=== PATIENT | female | born 1960 | race Caucasian/White ===

== ENCOUNTER → 2020-07-22 | Outpatient (CLI) | payer OTHER ==
[~2020-07-22] VITALS: Ht 149.9 cm; Wt 77.1 kg
[~2020-07-22] MED LIST: ALBUTEROL INHAL17 GM IH; COZAAR100 MG PO; DARVOCET-N 1001 EACH PO; DULOXETINE HCL60 MG PO; FAMOTIDINE 40 M40 M1 PO; FENOFIBRATE160 MG PO; HYDROCHLOROTHIA25 M2 PO; INCRUSE ELLI62.5 MCG INH; LEVO-T50 MCG PO; LYRICA 50 MG50 M1 PO; PROLIA60 MG/1 ML SUBQ; REQUIP 1 MG TABL1 M1 PO; TYLENOL325 M1 PO; ULTRAM 50MG TAB50 MG PO; VICODIN; ZOLOFT100 MG PO
[2020-07-22 09:28] VITALS: BP 128/69
--- NOTE | 2020-07-22 10:08 | NUR ---
Pain Clinic Assessment: 1. History of Osteoarthritis: History of Rheumatoid Arthritis: 2. Height: 4 ft. 11 in. 149.9 cm. Weight: 170.0 lb. oz. 77.112 kg. Patient's BMI: 34.3 3. Vital Signs: BP: 128/69 Pulse: 93 Resp: 16 Temp: 02 Sat: 98 ECG Mon: 4. Pain Intensity: 8 5. Fall Risk: Dizziness: N Needs help standing or walking: N Fallen in the last 3 months: N Fall risk comments: 6. Patient on Blood Thinner: None 7. History of Hypertension: Y 8. Opioid Therapy greater than 6 weeks: N Opiate Contract Signed: 9. Risk Assessment Tool Provided: 10. Functional Assessment Tool: 11. Recreational Drug Use: Past greater than 3 mos Drug Type: MARIJUANIA Tobacco Use: Former Smoker Tobacco Type: Cigarettes Amount or Packs/day: How Many Years: Alcohol Use: No Frequency: Quant:
--- NOTE | 2020-07-23 11:19 | HPC ---
[facility] [address] [address] PAIN MANAGEMENT CONSULTATION Name: KESHA CARDENAS [id number] Admission: 07/22/20 Attend Phys: Hood Montenegro DO Discharge: Date of : 56 Report #: [id number] THIS REPORT FOR: cc: CJ PAIZ MD, OSSAMA MD Johnson, James E. DO ~ DATE OF SERVICE: 07/22/2020 CHIEF COMPLAINT: Left shoulder pain and bilateral hand pain. HISTORY OF PRESENT ILLNESS: As you know, the patient is a 60-year-old female who reports acute onset of left shoulder pain that occurred November 2019. She denies specific injury or trauma. She states the pain is located within the shoulder with radiation to the proximal humerus on the left. There is no sensation of neck pain or radiation towards the neck. She also complains of chronic bilateral hand pain and numbness and tingling. The patient has undergone 2 steroid injections IM in the left upper extremity, which provided minimal benefit. She has also had oral steroids again which provided minimal benefit. She underwent physical therapy for cervical radiculopathy, which was unhelpful. She continues to experience pain in the left shoulder with any type of movement. She has been referred to our service by her primary care physician for evaluation for left arm and bilateral hand pain. The patient reports today pain is constant with intermittent exacerbations with moving her left shoulder. She states her pain is aching, pulling and sharp when describing pain, places current pain score at 8/10. Daily average at 10/10. Worst pain has been is 10/10. The patient states that pain is exacerbated with using her right arm, pressure on the shoulder, reaching and lifting. Nothing tends to improve pain. She has been referred to our service to discuss treatment options for left shoulder pain and bilateral hand pain. PAST MEDICAL HISTORY: 1. Hyperlipidemia. 2. Chronic low back pain. 3. Anxiety. 4. Depression. 5. Lumbar radiculopathy. 6. Obesity. 7. History of Tarlov cyst, status post surgery. 8. Restless leg syndrome. 9. Hypothyroidism. 10. Hypertension. 11. Osteoporosis. PAST SURGICAL HISTORY: 1. Hysterectomy. [facility] [address] [place] [address] PAIN MANAGEMENT CONSULTATION Name: KESHA CARDENAS Room #: REG [facility].#: [id number] Admission: 07/22/20 Attend Phys: Hood Montenegro DO Discharge: Date of : 56 Report #: [id number] 2. Back surgery. 3. Cholecystectomy. 4. 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 SOCIAL HISTORY: The patient denies tobacco, alcohol, IV or illicit drug use. She is on disability, has been on disability for 10 years. She is not in litigation in regards to pain. She is unaccompanied at today's visit. REVIEW OF SYSTEMS: Positive for fatigue and weakness, frequent and recurrent headaches, wearing corrective eyewear, shortness of breath with walking or lying flat, nocturia, incontinence and dribbling to urine, numbness and tingling sensations, head injury, memory loss, confusion, depression, insomnia, thyroid disease, heat and cold intolerances, left shoulder pain and bilateral hand pain. All other review of systems negative per 12-point review of systems other than those listed in history of present illness. Pain impact score 53/70 indicating severe interference of daily activities secondary to pain. ALLERGIES: No known drug allergies. CURRENT MEDICATIONS: Acetaminophen 325 mg p.r.n., Prolia 60 mg per mL twice a year, Incruse Ellipta 62.5 mcg inhaled once a day, duloxetine 60 mg per day, ropinirole 2 mg per day, levothyroxine 50 mcg per day, famotidine 40 mg per day, losartan 100 mg once a day, hydrochlorothiazide 25 mg once a day, fenofibrate 160 mg once a day, sertraline 100 mg per day. IMAGING: MRI cervical spine obtained 06/23/2020 shows mild posterior C4-C5, C5-C6 disk bulge, no central canal nor neural foraminal stenosis. Normal diameter of the central canal throughout the cervical spine and normal foramen. This is essentially a normal MRI. PQRS: The patient reports no history of rheumatoid arthritis. She is placing a current pain intensity at 8/10. She is not a fall risk, has not had a fall in last 3 months. She is not on blood thinners, but is treated for hypertension. She is not on chronic opioids, has a [id number] opioid addiction potential based on assessment tool. Pain impact 53/70, severe interference of daily activities secondary to pain. PHYSICAL EXAMINATION: VITAL SIGNS: Blood pressure 120/69, pulse 93, respiratory rate 16 and unlabored. The patient is 98% on room air. Height 4 feet 11 inches tall, weight 170 pounds, BMI calculated 34.3. GENERAL: Well-developed, well-nourished, well-hydrated, exogenously obese 60-year-old female appearing her stated age. She is in moderate distress secondary to pain, placing current pain score at 8/10 involving the left [address] [address] PAIN MANAGEMENT CONSULTATION Name: KESHA CARDENAS Room #: REG [facility] Robyn#: [id number] Admission: 07/22/20 Attend Phys: Hood Montenegro DO Discharge: Date of : 56 Report #: [id number] shoulder. HEENT: Normocephalic, atraumatic. Pupils equal, round and reactive. NEUROLOGIC: Speech is fluent. The patient deemed a good historian. She is wearing a mask in compliance with COVID-19 regulations. LUNGS: Appear clear. No wheeze, rhonchi or rales. CARDIOVASCULAR: Regular. No appreciable gallop, no rub. ABDOMEN: Soft, obese, normal active bowel sounds. EXTREMITIES: Show no clubbing, no cyanosis, no edema. MUSCULOSKELETAL: Palpatory tenderness is noted over the left shoulder, both anterior and posterior. There is no tenderness over the biceps tendon insertions. Active and passive range of motion of left shoulder causing intensification of pain. She has positive testing for rotator cuff injury. Unable to perform liftoff test. Apley's test is positive. She is unable to abduct the shoulder between 35 degrees and 110 degrees without severe pain and significant giveaway weakness. The patient is also positive for Tinel's and Phalen's sign bilaterally. Cervical provocation testing is met with no increase in pain. There is no crepitus with movement. There is no restriction of motion. Spurling's test is negative bilaterally. Upper extremities muscle bulk and tone is equal and symmetrical 5/5. She is intact to light touch from C5 through T1 dermatomes. Deep tendon reflexes are symmetrical, but diminished at biceps, brachialis and triceps and that is bilaterally. ASSESSMENT: 1. Left shoulder pain. 2. Likely rotator cuff injury of the left shoulder. 3. Bilateral carpal tunnel syndrome. PLAN: 1. Based on today's physical exam and history the patient has provided, the description the patient uses in regards to pain as well as location of symptoms and those activities that exacerbate her left shoulder symptoms themselves, it would appear that her symptoms are related specifically to the left shoulder. Review of the MRI of the cervical spine shows a normal MRI. There is no concerning central canal nor neural foraminal stenosis. I advised the patient, her symptoms are not related to cervical radiculopathy. Testing also confirms this diagnosis. She is experiencing left shoulder pain, I believe there is intrinsic damage, likely a rotator cuff injury given the fact that she cannot participate in any of the provocating testing of the shoulder without excruciating pain. After our discussion of the findings of the physical exam, we discussed the treatment options for her shoulder pain initially and then discussed the treatment options for her bilateral carpal tunnel causing bilateral hand pain and numbness. The following was discussed with the patient today. We discussed physical therapy, stretching exercises and attention directed, specifically at the left shoulder. Apparently, the patient was undergoing [facility] [address] [place] [address] PAIN MANAGEMENT CONSULTATION Name: KESHA CARDENAS Room #: REG [facility] Gloria#: [id number] Admission: 07/22/20 Attend Phys: Hood Montenegro DO Discharge: Date of : 56 Report #: [id number] physical therapy for a cervical radiculopathy, which is not the source of the patient's symptoms. We discussed addition of medications such as nonsteroidal anti-inflammatories on a consistent basis, which could provide benefit, but would have to be taken on a very consistent daily basis. We discussed having the patient undergo an intra-articular shoulder injection if she notes improvement initially with the injection. This would further confirm the source of the symptoms is her left shoulder. We also then discussed a consultation with Orthopedics for possible surgical evaluation. After reviewing risks and benefits of all proposed treatment options, the patient chose to begin with an intra-articular shoulder injection. 2. The patient was advised risks and benefits of an intra-articular shoulder injection. These risks include but are not necessarily limited to bleeding, bruising, infection, worsening pain, no relief of pain, also risk of temporary or permanent muscle weakness, temporary or permanent nerve damage, possible joint destruction and . The patient states understood and wished to proceed. 3. The patient has bilateral carpal tunnel syndrome based on the physical exam today, she has positive Tinel's and positive Phalen's sign. We would recommend initially conservative treatment for her carpal tunnel with cock-up splints as a treatment course. We had also suggested the primary care team could initiate therapy with neuropathic pain medication such as amitriptyline, nortriptyline, Cymbalta, Lyrica, or gabapentin. We also discussed that surgical decompression with a flexor retinaculum release bilaterally would provide her with further improvement and return of function. After reviewing the risks and benefits of all the proposed treatment options, the patient chose to look into cock-up splints initially. If this is unsuccessful, then move forward with orthopedic evaluation for bilateral carpal tunnel. 4. We made no changes in the patient's medication management at this time. She will continue current therapy as prior prescribed. 5. We plan to see the patient back in followup visit in approximately one month. I am pleased to see that the patient left our clinic today with 100% resolution of her left shoulder pain after the intra-articular shoulder injection further in the presumptive diagnosis of intrinsic shoulder injury on the left side, likely due to rotator cuff pathology. Imaging of the left shoulder did not show a significant amount of osteoarthritis, though 100% resolution of symptoms with an intra-articular shoulder injection would indicate the likelihood of a rotator cuff injury that needs to be evaluated further. We are hopeful the patient will see benefit with the injection and we will see her back in followup visit in 1 month to discuss further. 6. We wish to thank the referring physician, Dr. Wick for the opportunity to see the patient in consultation. We will keep you apprised of response to treatment as we address left shoulder pain and bilateral carpal tunnel. DESCRIPTION OF PROCEDURE: Left intra-articular shoulder injection under fluoroscopic guidance. [facility] [address] [place] [address] PAIN MANAGEMENT CONSULTATION Name: KESHA CARDENAS Pool Room #: REG [facility].#: [id number] Admission: 07/22/20 Attend Phys: Hood Montenegro DO Discharge: Date of : 56 Report #: [id number] After obtaining written consent, the patient was taken back to fluoroscopy suite, placed in a supine position. Image intensifier (C-arm) was brought into position over the left shoulder and AP imaging was obtained. The area overlying the left shoulder was then prepped and draped in aseptic fashion using chlorhexidine. A sterile marker was then used to leighann the site of the injection. A 27-gauge 1-1/4 inch needle was then used to anesthetize skin and subcutaneous tissue with 2 mL of 1% lidocaine. A 27-gauge 1-1/2 inch needle was then advanced into the left shoulder under fluoroscopic guidance. Needle was advanced until reaching the proximal head of the humerus. Needle was then retracted 1 mm and aspiration noted to be negative for heme. After negative aspiration for heme, 0.5 mL of Omnipaque injected demonstrating an excellent left shoulder arthrogram. After negative aspiration for heme, 3 mL of a solution containing 1 mL 40 mg per mL, 40 mg total triamcinolone along with 2 mL bupivacaine 0.5% injected slowly. Needle retracted group home, flushed with 1 mL of 1% lidocaine and removed. Sterile bandage placed over injection site. No new motor deficits present in the upper extremity following procedure. The patient tolerated procedure well, carefully escorted to recovery room in stable condition. No apparent complications. VAS before procedure rated at 8/10, VAS upon discharge 0/10. After meeting our discharge criteria, the patient discharged home. <ELECTRONICALLY SIGNED> By: Hood Montenegro DO 07/23/20 1119 0900 [id number] Hood Montenegro DO /nt
== END | disposition home or self-care (01) ==
LOC: PAIN 07-02 10:17
PROVIDERS: ATTEND Anesthesiology Pain Medicine
DX: M25.512 Pain in left shoulder (principal); G89.29 Other chronic pain; I10 Essential (primary) hypertension; E03.9 Hypothyroidism, unspecified; E78.5 Hyperlipidemia, unspecified; M81.0 Age-related osteoporosis without current pathological fracture; F32.9 Major depressive disorder, single episode, unspecified; F41.9 Anxiety disorder, unspecified; E66.09 Other obesity due to excess calories; Z98.890 Other specified postprocedural states; Z79.899 Other long term (current) drug therapy; Z87.891 Personal history of nicotine dependence; Z68.34 Body mass index [BMI] 34.0-34.9, adult; Z90.49 Acquired absence of other specified parts of digestive tract; Z90.710 Acquired absence of both cervix and uterus

== ENCOUNTER → 2020-08-12 | Outpatient (CLI) | payer OTHER ==
[~2020-08-12] VITALS: Ht 149.9 cm; Wt 78.6 kg
[~2020-08-12] MED LIST changes: +VOLTAREN GEL 1100 G1 TOP
[2020-08-12 12:39] VITALS: BP 127/92
--- NOTE | 2020-08-12 12:52 | NUR ---
Pain Clinic Assessment: 1. History of Osteoarthritis: TAILBONE History of Rheumatoid Arthritis: 2. Height: 4 ft. 11 in. 149.9 cm. Weight: 173.2 lb. oz. 78.563 kg. Patient's BMI: 35.0 3. Vital Signs: BP: 127/92 Pulse: 88 Resp: 14 Temp: 02 Sat: 96 ECG Mon: 4. Pain Intensity: 4 5. Fall Risk: Dizziness: N Needs help standing or walking: N Fallen in the last 3 months: N Fall risk comments: 6. Patient on Blood Thinner: None 7. History of Hypertension: Y 8. Opioid Therapy greater than 6 weeks: N Opiate Contract Signed: 9. Risk Assessment Tool Provided: 10. Functional Assessment Tool: 11. Recreational Drug Use: Past greater than 3 mos Drug Type: Tobacco Use: Former Smoker Tobacco Type: Amount or Packs/day: How Many Years: Alcohol Use: No Frequency: Quant:
--- NOTE | 2020-08-13 14:14 | HPC ---
[facility] [place] [place] [address] PAIN MANAGEMENT CONSULTATION Name: KESHA CARDENAS Room #: REG [facility] Faizan#: [id number] Admission: 08/12/20 Attend Phys: Hood Montenegro DO Discharge: Date of : 56 Report #: [id number] THIS REPORT FOR: cc: CJ PAIZ MD, OSSAMA MD Johnson, James E. DO ~ DATE OF SERVICE: 08/12/2020 CHIEF COMPLAINT: Left shoulder pain. HISTORY OF PRESENT ILLNESS: As you know, the patient is a 60-year-old female with longstanding history of left shoulder pain beginning in November 2019. The patient is unable to utilize her left arm due to ongoing pain. She has pain that begins in the shoulder and radiates to the proximal humerus consistent with left shoulder symptoms. She underwent an intra-articular shoulder injection, which provided 100% improvement in overall pain directly after the injection, indicating that the shoulder is the source of the symptoms. She has no cervical radicular pain, and imaging of the cervical spine is normal. We discussed with the patient at that last visit that if the injection did not provide long-term benefit, we would recommend surgical evaluation. She returns today in followup visit, stating that her symptoms recurred quite quickly, but did receive 100% improvement in symptoms with the local anesthetic consistent with an intrinsic shoulder pathology. She returns stating that her pain is continuous, constant, aching, pulling, sharp, and intense, exacerbated with using her arm and lifting with her arm. She has suffered no injury or trauma to the area that she is aware of. ALLERGIES: No known drug allergies. CURRENT MEDICATIONS: Acetaminophen, Prolia, Incruse Ellipta, duloxetine, ropinirole, levothyroxine, famotidine, losartan, hydrochlorothiazide, fenofibrate, and sertraline. SOCIAL HISTORY: The patient denies tobacco, alcohol, IV or illicit drug use. She is on disability, has been on disability for 10 years. She is not in litigation in regard to pain. She is unaccompanied today. IMAGING: No new imaging available. PQRS: The patient has no reported history of rheumatoid arthritis. She has generalized osteoarthritis, specifically mild in the cervical region. She is placing current pain intensity at 4/10. She is not a fall risk, has not had a fall in last 3 months. She is not on blood thinners, but is treated for hypertension. She is not on chronic opioids, has a low opioid addiction potential based on our assessment tool. Pain impact is 60/70, severe, near complete interference of daily activities secondary to pain. [address] [address] PAIN MANAGEMENT CONSULTATION Name: KESHA CARDENAS Room #: REG [facility] Gloria#: [id number] Admission: 08/12/20 Attend Phys: Hood Montenegro DO Discharge: Date of : 56 Report #: [id number] PHYSICAL EXAMINATION: VITAL SIGNS: Blood pressure 127/92, pulse 88, respiratory rate 14 and unlabored. The patient is 96% on room air. Height 4 feet 11 inches tall, weight 173.2 pounds and BMI calculated 35.0. GENERAL: Well-developed, well-nourished, well-hydrated, exogenously obese 60-year-old female appearing stated age. Pain is rated today 4/10 involving the left shoulder. HEENT: Normocephalic, atraumatic. Pupils are round and responsive. NEUROLOGIC: Speech is fluent. The patient is wearing a mask in compliance with COVID-19 regulations. EXTREMITIES: Show no clubbing, no cyanosis. No appreciable edema. MUSCULOSKELETAL: Once again, there is a palpatory tenderness noted over the left shoulder, both anterior and posterior. Deep palpation of the area causes intensification of pain. The patient does have apprehension type testing that is positive. Active and passive range of motion of the left shoulder is left with intensification of pain consistent with an intrinsic shoulder pathology. Apley's test is positive. Positive provocating testing of the left shoulder and rotator cuff was performed. Unable to perform lift-off test. She has positive Tinel's and Phalen's signs bilaterally. ASSESSMENT: 1. Left shoulder pain. 2. Rotator cuff injury of the left shoulder. 3. Bilateral carpal tunnel. PLAN: 1. The patient has returned today in followup visit having noted excellent benefit immediately after undergoing an intra-articular shoulder injection with a combination of bupivacaine and steroid medication. Unfortunately, the steroid medication did not provide long-term benefit. We have discussed with the patient the fact that she received instantaneous improvement in symptoms with the bupivacaine would indicate that the problem that she is experiencing is within the shoulder itself and likely a rotator cuff type of injury. She does not have a significant amount of arthritic changes in the shoulder, though this does not preclude a rotator cuff injury. There is no radicular component to the patient's symptoms and MRI of the cervical spine shows only mild cervical facet arthropathy with no neural foraminal or central canal stenosis. The combination of evidence would indicate left shoulder pathology. The patient and I discussed the treatment options. She requested a referral to Orthopedics. We did offer to the patient a second in series of intra-articular shoulder injections, but the patient chose not to undergo that procedure. 2. We will refer the patient to Orthopedics for evaluation of the left shoulder. She will keep us apprised of the treatment options suggested and whether or not surgical options will be necessary. 3. The patient continues to experience bilateral carpal tunnel symptoms. I [facility] [address] [place] [address] PAIN MANAGEMENT CONSULTATION Name: KESHA CARDENAS Room #: REG [facility] Faizan#: [id number] Admission: 08/12/20 Attend Phys: Hood Montenegro DO Discharge: Date of : 56 Report #: [id number] have advised the patient while at the orthopedic consultation for the left shoulder, she discuss carpal tunnel release. This will alleviate the bilateral hand pain and numbness and tingling she is experiencing. The symptoms in the hands are unrelated to the cervical spine, but show positive Tinel's and Phalen's sign consistent with carpal tunnel. She will discuss this with Orthopedics at their visit. 4. We plan to see the patient back in followup visit on an as-needed basis. She will keep us apprised of the further workups in regards to the left shoulder and bilateral carpal tunnel. <ELECTRONICALLY SIGNED> By: Hood Montenegro DO 08/13/20 1414 1212 [id number] Hood Montenegro DO /nt
== END ==
LOC: PAIN 08-05 10:20
PROVIDERS: ATTEND Anesthesiology Pain Medicine
DX: S46.002D Unspecified injury of muscle(s) and tendon(s) of the rotator cuff of left shoulder, subsequent encounter (principal); G56.03 Carpal tunnel syndrome, bilateral upper limbs; X58.XXXD Exposure to other specified factors, subsequent encounter; Z88.8 Allergy status to other drugs, medicaments and biological substances; Z79.899 Other long term (current) drug therapy